=== PATIENT | male | born 1980 | race American Indian/Alaskan Native ===

== ENCOUNTER 2016-12-01 11:32 | Day surgery (SDC) | payer BC ==
[~2016-12-01 11:32] MED LIST: NACL 0.9% 1000 ML 1,000 ML IV SCH; PEPCID PO NR; TRIPLE ANTIBIOTIC TP ONE; VERSED IV NR
[2016-12-01] MEDS ORDERED: ANCEF/STERILE WATER 2 GM/20 ML 2 GM/20 ML SYRINGE IV NR (12:00)
[2016-12-01] MEDS ORDERED: DILAUDID IV PRN (12:27)
[2016-12-01] MEDS ORDERED: ZOFRAN IV PRN (12:27)
--- NOTE | 2016-12-01 12:33 | Anesthesia Consultation ---
Anesthesia Consult and Med Hx Date of service: 12/01/16 - Airway Anesthetic Teeth Evaluation: Good ROM Head & Neck: Adequate Mental/Hyoid Distance: Adequate Mallampati Class: Class II Intubation Access Assessment: Probably Good - Pulmonary Exam CTA: Yes - Cardiac Exam Cardiac Exam: RRR - Pre-Operative Health Status ASA Pre-Surgery Classification: ASA2 Proposed Anesthetic Plan: General - Pulmonary Hx Smoking: Yes (STOPPED X 10YRS , BUT MARIJUANA DAILY) Hx Asthma: Yes (INTUBATED WITH ASTHMA 2002) Hx Sleep Apnea: No (CAMILA PRE SCREEN HIGH RISK) - Cardiovascular System Hx Hypertension: Yes (X 2 MONTHS) - Hematic Hx Anemia: Yes (NOT RECENT) - Other Systems Hx Substance Use: Yes (MARIJUANA DAILY) Hx Cancer: No
--- NOTE | 2016-12-01 12:34 | Anesthesia Day of Surgery ---
Anesthesia Day of Surgery - Day of Surgery Patient Examined: Yes Patient H&P Reviewed: Yes Patient is NPO: Yes
[2016-12-01] MEDS ORDERED: SUBLIMAZE ONE (13:13)
[2016-12-01] MEDS ORDERED: DIPRIVAN 10 MG/ML IV ONE ×2 (13:18→13:42)
[2016-12-01] MEDS ORDERED: XYLOCAINE MPF 2% ONE (13:20)
[2016-12-01] MEDS ORDERED: THERMAZENE 50 GRAM TP ONE ×2 (13:33→13:58)
[2016-12-01] MEDS ORDERED: DECADRON ONE (13:40)
[2016-12-01] MEDS ORDERED: ZOFRAN ONE (13:45)
[2016-12-01] MEDS ORDERED: ROBINUL ONE (13:52)
[2016-12-01] MEDS ORDERED: WATER FOR IRRIG STERILE IR ONE (13:57)
[2016-12-01] MEDS ORDERED: NACL 0.9% 1000 ML 1,000 ML ONE (14:01)
--- NOTE | 2016-12-01 14:15 | Short Stay Summary ---
Short Stay Documentation Date of service: 12/01/16 - History H&P: obtained from office - Allergies and Medications Current Medications: Allergies No Known Allergies Allergy (Verified 10/18/13 00:58) Home Medications Medication Instructions Recorded Confirmed Last Taken Type Hydrochlorothiazide [HCTZ] 25 mg PO QDAY #1 tablet 09/21/15 12/01/16 12/01/16 Rx ALBUTEROL Inhaler [ProAir HFA 2 puff IH QID PRN #1 inhalation 02/28/16 12/01/16 12/01/16 Rx Inhaler] ALBUTEROL NEB's [Proventil 0.083% 2.5 mg IH TID PRN #20 neb 02/28/16 12/01/16 Rx NEBS] Valacyclovir HCl [Valtrex] 1,000 mg PO PRN PRN 11/25/16 11/25/16 Unknown History amLODIPine [Norvasc] 10 mg PO DAILY 11/25/16 12/01/16 12/01/16 History Active Medications Famotidine (Pepcid) 20 mg PO PREOP NR Stop: 12/01/16 15:00 Last Admin: 12/01/16 12:40 Dose: 20 mg Hydromorphone HCl (Dilaudid) 0.5 mg IV Q10MIN PRN PRN Reason: Pain , Severe (7-10) Stop: 12/04/16 12:28 Sodium Chloride (Nacl 0.9% 1000 Ml) 1,000 mls @ 75 mls/hr IV DIRECT XU Last Admin: 12/01/16 12:30 Dose: 75 mls/hr Midazolam HCl (Versed) 2 mg IV PREOP NR Stop: 12/01/16 23:59 Last Admin: 12/01/16 13:10 Dose: 2 mg - Brief post op/procedure progress note Date of procedure: 12/01/16 Pre-op diagnosis: perineal / scrotal condyloma Post-op diagnosis: same Procedure: cysto, co2 laser & excision of condyloma Anesthesia: LILIANA Surgeon: YARY HOANG Estimated blood loss: minimal Pathology: list (condyloma) Specimen disposition: to lab Condition: stable - Hospital course Hospital course: cipro, norco, silvadene cream BID (on chart) - Disposition Condition at discharge: Stable Disposition: DC-01 TO HOME OR SELFCARE Short Stay Discharge Plan Follow up with: PRIMARY CARE, [Primary Care Provider] - 7 Days
[2016-12-01] MEDS ORDERED: PROVENTIL IH ONE (14:26)
--- NOTE | 2016-12-01 14:59 | Post Anesthesia Evaluation ---
- Post Anesthesia Evaluation Patient Participated: Yes Airway Patent: Yes Stable Respiratory Function: Yes Nausea/Vomiting: No Temp > 96.8F: Yes Pain Manageable: Yes Adequeate Hydration: Yes Anesthesia Complications: No Block Receding Appropriately: Not Applicable Patient on Ventilator: No
[2016-12-01] MEDS ORDERED: NORCO 5/325 PO PRN (15:30)
[2016-12-01 18:21] VITALS: BP 125/85
--- NOTE | 2016-12-01 20:29 | Operative Report ---
PREOPERATIVE DIAGNOSIS: Penoscrotal condyloma 1 cm x 3 cm. POSTOPERATIVE DIAGNOSIS: Penoscrotal condyloma 1 cm x 3 cm. PROCEDURE: Cystoscopy, excision and CO2 laser ablation of condyloma. SURGEON: Damaso Tapia MD ANESTHESIA: General. ANESTHESIOLOGIST: Lor Calero MD ESTIMATED BLOOD LOSS: Minimal. FLUIDS: Crystalloid. COMPLICATIONS: No complications. INDICATIONS: This patient is a 36-year-old gentleman seen in the office with moderate size condyloma in the perineal and scrotal area. Discussed options. He agreed to proceed with surgical intervention. Risks, benefits, and complications were explained. DESCRIPTION OF PROCEDURE: The patient was taken to the operative suite, placed in a supine position. After adequate general anesthesia, placed in a dorsal lithotomy position, prepped and draped in usual fashion. Inspection of the penis did not reveal any lesions, scrotal area in the crease of the right scrotum and upper thigh was noted to have 1 cm x 3 cm worth of condyloma about the size of a finger. Cystoscopy was performed. No urethral, prostate or bladder abnormalities. Excision of half the condyloma volume was performed with Davion, CO2 laser, ablation of the rest of the lesion using 6 delong was performed. Adequate removal of the condyloma could be appreciated. A 3-0 Vicryl in interrupted fashion was used to reapproximate the skin. Silvadene cream was placed. Fluffs and mesh briefs were placed. He was extubated and taken to the recovery room. Rectal exam was benign. He will go home on Cipro, [place] and Silvadene cream b.i.d. JOB# [id number] [employer] [facility]/NT[facility]
== END 2016-12-01 17:22 | disposition home or self-care (01) ==
LOC: OR 11:32
PROVIDERS: ATTEND Urology
DX: A63.0 Anogenital (venereal) warts (principal); L83 Acanthosis nigricans; L57.0 Actinic keratosis; K62.89 Other specified diseases of anus and rectum; F12.90 Cannabis use, unspecified, uncomplicated; J45.909 Unspecified asthma, uncomplicated; I10 Essential (primary) hypertension; G47.33 Obstructive sleep apnea (adult) (pediatric); Z79.899 Other long term (current) drug therapy; Z87.440 Personal history of urinary (tract) infections; Z87.891 Personal history of nicotine dependence; Z72.89 Other problems related to lifestyle; Z83.3 Family history of diabetes mellitus
CPT/HCPCS: 36415; 54065; 84132; 88305; A4217; J0690; J1100; J2250; J2405; J2704; J3010; J7030; 88304; A6250

== ENCOUNTER 2018-06-25 21:07 | Emergency (ER) | payer BC ==
[2018-06-25] MEDS ORDERED: PROVENTIL IH ONE (21:17)
[2018-06-25] MEDS ORDERED: SOLU-Medrol IM ONE (21:17)
--- NOTE | 2018-06-25 21:19 | Emergency Department Report ---
Chief Complaint: Dyspnea/Respdistress Stated Complaint: ASTHMA Time Seen by Provider: 06/25/18 21:16 - HPI History of Present Illness: ASTHMA AE NO FEVER NO CHILLS NO CP WHEEZING BILATERALLY RX ALB ATROVENT NEB BP MED CIG/ETOH PMH ASTHMA HTN MSE COMPLETED - Exam Vital Signs: Vital Signs 06/25/18 21:16 Temperature 98.4 F Pulse Rate 90 Respiratory 22 Rate Blood Pressure 156/100 O2 Sat by Pulse 95 Oximetry MSE screening note: Focused history and physical exam performed. Due to findings the following was ordered: ED Disposition for MSE Condition: Stable
--- NOTE | 2018-06-25 22:00 | XRay Report ---
PROCEDURE: Chest. TECHNIQUE: PA and lateral views. HISTORY: Asthma. COMPARISONS: Chest 09/21/2015. FINDINGS: The heart and mediastinum appear normal. The lungs are clear and well expanded. There are no pleural effusions. The soft tissues and regional skeleton are unremarkable. IMPRESSION: Normal study. This document is electronically signed by Wil Castle MD., June 25 2018 09:59:12 PM ET
--- NOTE | 2018-06-25 22:43 | Emergency Department Report ---
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 States that he does not take his medication before going intragenic into the freezer and symptoms and subsequently began to have some issues with with wheezing, coughing and some shortness of breath, doesn't come to the emergency department. No fevers, chills, sweats, no hemoptysis, hematemesis, no hematochezia. He reports no lower extremity swelling, no no abdominal pain or back pain. MD Complaint: "asthma attack" -: Gradual Asthma History: other Severity: mild Context: other Associated Symptoms: none, dry cough. denies: fever, chest pain, leg edema, syncope - Related Data Home Medications Medication Instructions Recorded Confirmed Last Taken Valacyclovir HCl [Valtrex] 1,000 mg PO PRN PRN 11/25/16 11/25/16 Unknown amLODIPine [Norvasc] 10 mg PO DAILY 11/25/16 12/01/16 12/01/16 Previous Rx's Medication Instructions Recorded Last Taken Type hydroCHLOROthiazide [HCTZ] 25 mg PO QDAY #1 tablet 09/21/15 12/01/16 Rx ALBUTEROL Inhaler (OR & NICU) 2 puff IH QID PRN #1 inhalation 02/28/16 12/01/16 Rx [ProAir HFA Inhaler] ALBUTEROL NEB's [Proventil 0.083% 2.5 mg IH TID PRN #20 neb 02/28/16 12/01/16 Rx NEBS] Montelukast [Singulair] 10 mg PO QPM #10 tablet 06/25/18 Unknown Rx predniSONE [Deltasone] 50 mg PO QDAY #5 tab 06/25/18 Unknown Rx Allergies Allergy/AdvReac Type Severity Reaction Status Date / Time No Known Allergies Allergy Verified 10/18/13 00:58 ED Review of Systems ROS: Stated complaint: ASTHMA Other details as noted in HPI Constitutional: denies: chills, fever Eyes: denies: eye pain, eye discharge, vision change ENT: denies: ear pain, throat pain Respiratory: wheezing. denies: cough, shortness of breath Cardiovascular: denies: chest pain, palpitations Endocrine: no symptoms reported Gastrointestinal: denies: abdominal pain, nausea, diarrhea Genitourinary: denies: urgency, dysuria Musculoskeletal: denies: back pain, joint swelling, arthralgia Skin: denies: rash, lesions Neurological: denies: headache, weakness, paresthesias Psychiatric: denies: anxiety, depression Hematological/Lymphatic: denies: easy bleeding, easy bruising ED Past Medical Hx - Past Medical History Hx Hypertension: Yes (X 2 MONTHS) Hx Asthma: Yes (INTUBATED WITH ASTHMA 2002) Additional medical history: intubated in 1994 - Surgical History Additional Surgical History: Anjum in thigh/right ankle - Social History Smoking Status: Never Smoker Substance Use Type: Alcohol, Marijuana - Medications Home Medications: Home Medications Medication Instructions Recorded Confirmed Last Taken Type hydroCHLOROthiazide [HCTZ] 25 mg PO QDAY #1 tablet 09/21/15 12/01/16 12/01/16 Rx ALBUTEROL Inhaler (OR & NICU) 2 puff IH QID PRN #1 inhalation 02/28/16 12/01/16 12/01/16 Rx [ProAir HFA Inhaler] ALBUTEROL NEB's [Proventil 0.083% 2.5 mg IH TID PRN #20 neb 02/28/16 12/01/16 12/01/16 Rx NEBS] Valacyclovir HCl [Valtrex] 1,000 mg PO PRN PRN 11/25/16 11/25/16 Unknown History amLODIPine [Norvasc] 10 mg PO DAILY 11/25/16 12/01/16 12/01/16 History Montelukast [Singulair] 10 mg PO QPM #10 tablet 06/25/18 Unknown Rx predniSONE [Deltasone] 50 mg PO QDAY #5 tab 06/25/18 Unknown Rx ED Physical Exam - General Limitations: No Limitations General appearance: alert, in no apparent distress - Head Head exam: Present: atraumatic, normocephalic - Eye Eye exam: Present: normal appearance, PERRL, EOMI, scleral icterus Pupils: Present: normal accommodation - ENT ENT exam: Present: normal exam, normal orophraynx, mucous membranes moist - Neck Neck exam: Present: normal inspection, full ROM - Respiratory Respiratory exam: Present: normal lung sounds bilaterally, wheezes, chest wall tenderness, decreased breath sounds. Absent: respiratory distress, rales, rhonchi, stridor, accessory muscle use - Cardiovascular Cardiovascular Exam: Present: regular rate, normal rhythm, normal heart sounds. Absent: bradycardia, tachycardia, systolic murmur, diastolic murmur, rubs, ga llop - GI/Abdominal GI/Abdominal exam: Present: soft, normal bowel sounds. Absent: tenderness, guarding, hyperactive bowel sounds, hypoactive bowel sounds, organomegaly, bruit, pulsatile mass - Rectal Rectal exam: Present: deferred - Extremities Exam Extremities exam: Present: normal inspection, full ROM, normal capillary refill. Absent: tenderness, pedal edema, calf tenderness - Back Exam Back exam: Present: normal inspection, full ROM. Absent: CVA tenderness (R), CVA tenderness (L), muscle spasm, paraspinal tenderness - Neurological Exam Neurological exam: Present: alert, oriented X3, CN II-XII intact, normal gait - Psychiatric Psychiatric exam: Present: normal affect, normal mood. Absent: anxious - Skin Skin exam: Present: warm, dry, intact, normal color. Absent: rash, diaphoretic, urticaria, petechiae, pallor, abrasion ED Course Vital Signs 06/25/18 21:16 Temperature 98.4 F Pulse Rate 90 Respiratory 22 Rate Blood Pressure 156/100 O2 Sat by Pulse 95 Oximetry ED Medical Decision Making - Radiology Data Radiology results: report reviewed (no acute processes) - Medical Decision Making Been much better since breathing treatment no acute distress, ambulating well. No decrease saturation talking in full sentences. No cysts. Remote muscle use. Discuss with him utilization of peak flows and Singulair which we'll add to his medication regimen and follow with his primary care provider for definitive medication adjustments. Critical care attestation.: If time is entered above; I have spent that time in minutes in the direct care of this critically ill patient, excluding procedure time. ED Disposition Clinical Impression: Asthma exacerbation Disposition: -01 TO HOME OR SELFCARE Is pt being admited?: No Does the pt Need Aspirin: No Condition: Stable Instructions: Asthma (ED) Referrals: ROGELIO WEST MD [Primary Care Provider] - 3-5 Days
[2018-06-25 23:12] VITALS: BP 139/91
== END 2018-06-25 23:11 | disposition home or self-care (01) ==
LOC: ED 21:07
DX: J45.901 Unspecified asthma with (acute) exacerbation (principal); I10 Essential (primary) hypertension
CPT/HCPCS: 71046; 94640; 96372; 99283; J2930

== ENCOUNTER 2018-09-02 19:39 | Emergency (ER) | payer BC ==
[2018-09-02] MEDS ORDERED: DUONEB *Not for PRN Use IH ONE (20:21)
--- NOTE | 2018-09-02 21:31 | Emergency Department Report ---
Blank Doc - Documentation Documentation: 38 y o male presents to Ed cc of asthma attack BREathing tx ordered and administered in triage, Cxr ACC eval
--- NOTE | 2018-09-02 21:56 | XRay Report ---
PROCEDURE: Chest. TECHNIQUE: PA and lateral chest radiographs were obtained. HISTORY: Shortness of breath. COMPARISONS: Chest 06/25/2018. FINDINGS: The heart and mediastinum appear normal. The lungs are clear and well expanded. There are no pleural effusions. The soft tissues and regional skeleton are unremarkable. IMPRESSION: Normal study. This document is electronically signed by Wil Castle MD., September 02 2018 10:54:19 PM ET
--- NOTE | 2018-09-02 23:08 | Emergency Department Report ---
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 the patient had associated SOB and wheezing. he has a dry cough. he denies any fever. pt states that he takes albuterol inhaler, albuterol nebulizer, advair and singulair. he states he is out of all of his medications. he is requesting a refill at this time. pt also has a hx of HTN and has not taken his medication in a couple of weeks due to being out of his meds. pt is also requesting refill of his HTN meds. - Related Data Home Medications Medication Instructions Recorded Confirmed Last Taken Valacyclovir HCl [Valtrex] 1,000 mg PO PRN PRN 11/25/16 11/25/16 Unknown Previous Rx's Medication Instructions Recorded Last Taken Type predniSONE [Deltasone] 50 mg PO QDAY #5 tab 06/25/18 Unknown Rx ALBUTEROL Inhaler (OR & NICU) 2 puff IH QID PRN #1 inhalation 09/02/18 Unknown Rx [ProAir HFA Inhaler] ALBUTEROL NEB's [Proventil 0.083% 2.5 mg IH TID PRN #20 neb 09/02/18 Unknown Rx NEBS] Fluticasone [Flonase] 1 spray NS QDAY #1 bottle 09/02/18 Unknown Rx Montelukast [Singulair] 10 mg PO QPM #30 tablet 09/02/18 Unknown Rx Prednisone [predniSONE 10 mg 10 mg PO .TAPER #1 tab.ds.pk 09/02/18 Unknown Rx (6-Day Pack, 21 Tabs)] amLODIPine [Norvasc] 10 mg PO DAILY #14 tablet 09/02/18 Unknown Rx hydroCHLOROthiazide [HCTZ] 25 mg PO QDAY #14 tablet 09/02/18 Unknown Rx Allergies Allergy/AdvReac Type Severity Reaction Status Date / Time No Known Allergies Allergy Verified 09/02/18 19:42 ED Review of Systems ROS: Stated complaint: ASTHMA Other details as noted in HPI Comment: All other systems reviewed and negative ED Past Medical Hx - Past Medical History Previous Medical History?: Yes Hx Hypertension: Yes (X 2 MONTHS) Hx Asthma: Yes (INTUBATED WITH ASTHMA 2002) Additional medical history: intubated in 1994 - Surgical History Past Surgical History?: Yes Additional Surgical History: Anjum in thigh/right ankle - Social History Smoking Status: Never Smoker Substance Use Type: Alcohol, Marijuana - Medications Home Medications: Home Medications Medication Instructions Recorded Confirmed Last Taken Type Valacyclovir HCl [Valtrex] 1,000 mg PO PRN PRN 11/25/16 11/25/16 Unknown History predniSONE [Deltasone] 50 mg PO QDAY #5 tab 06/25/18 Unknown Rx ALBUTEROL Inhaler (OR & NICU) 2 puff IH QID PRN #1 inhalation 09/02/18 Unknown Rx [ProAir HFA Inhaler] ALBUTEROL NEB's [Proventil 0.083% 2.5 mg IH TID PRN #20 neb 09/02/18 Unknown Rx NEBS] Fluticasone [Flonase] 1 spray NS QDAY #1 bottle 09/02/18 Unknown Rx Montelukast [Singulair] 10 mg PO QPM #30 tablet 09/02/18 Unknown Rx Prednisone [predniSONE 10 mg 10 mg PO .TAPER #1 tab.ds.pk 09/02/18 Unknown Rx (6-Day Pack, 21 Tabs)] amLODIPine [Norvasc] 10 mg PO DAILY #14 tablet 09/02/18 Unknown Rx hydroCHLOROthiazide [HCTZ] 25 mg PO QDAY #14 tablet 09/02/18 Unknown Rx ED Physical Exam - General Limitations: No Limitations General appearance: alert, in no apparent distress - Head Head exam: Present: atraumatic, normocephalic - Eye Eye exam: Present: normal appearance - ENT ENT exam: Present: other (pale, boggy turbinates bilaterally ) - Respiratory Respiratory exam: Present: normal lung sounds bilaterally. Absent: respiratory distress, wheezes, rales, rhonchi, stridor, chest wall tenderness, accessory muscle use, decreased breath sounds, prolonged expiratory - Cardiovascular Cardiovascular Exam: Present: regular rate, normal rhythm, normal heart sounds. Absent: systolic murmur, diastolic murmur, rubs, gallop - Neurological Exam Neurological exam: Present: alert, oriented X3 - Psychiatric Psychiatric exam: Present: normal affect, normal mood - Skin Skin exam: Present: warm, dry, intact ED Course Vital Signs 09/02/18 09/02/18 09/02/18 19:45 20:19 23:28 Temperature 99.3 F 99.3 F 98.9 F Pulse Rate 95 H 94 H 88 Respiratory 18 16 20 Rate Blood Pressure 170/108 Blood Pressure 170/108 173/114 [Left] O2 Sat by Pulse 97 96 99 Oximetry ED Medical Decision Making - Lab Data Vital Signs 09/02/18 09/02/18 19:45 20:19 Temperature 99.3 F 99.3 F Pulse Rate 95 H 94 H Respiratory 18 16 Rate Blood Pressure 170/108 Blood Pressure 170/108 [Left] O2 Sat by Pulse 97 96 Oximetry - Radiology Data Radiology results: report reviewed PROCEDURE: Chest. TECHNIQUE: PA and lateral chest radiographs were obtained. HISTORY: Shortness of breath. COMPARISONS: Chest 06/25/2018. FINDINGS: The heart and mediastinum appear normal. The lungs are clear and well expanded. There are no pleural effusions. The soft tissues and regional skeleton are unremarkable. IMPRESSION: Normal study. 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 the patient had associated SOB and wheezing. he has a dry cough. he denies any fever. pt states that he takes albuterol inhaler, albuterol nebulizer, advair and singulair. he states he is out of all of his medications. he is requesting a refill at this time. pt also has a hx of HTN and has not taken his medication in a couple of weeks due to being out of his meds. pt is a lso requesting refill of his HTN meds. pt given nebulizer tx by triage, on examination he has no wheezing and good air movement. CXR with no acute process. pt has pale, boggy turbinates. pt does not know the dose of his advair and has never been prescribed by the ED before, advised pt he can have it refilled by his PCP. pt given refill of albuterol inhaler, albuterol neb solution, and singulair. also, pt given flonase for allergic rhinitis. pt BP is elevated but not symptomatic, pt asked for refill of BP meds, discussed would give two weeks worth but all future refills would need to be through his primary care doctor. discussed to follow up with PCP in the next 2-3 days to discuss asthma and blood pressure. return to the emergency room for any new or worsening symptoms. - Differential Diagnosis asthma, URI, viral syndrome, PNA, seasonal allergies, allergic rhinitis Critical care attestation.: If time is entered above; I have spent that time in minutes in the direct care of this critically ill patient, excluding procedure time. ED Disposition Clinical Impression: Seasonal allergies, Elevated blood pressure reading Asthma exacerbation Qualifiers: Asthma severity: unspecified severity Asthma persistence: unspecified Qualified Code(s): J45.901 - Unspecified asthma with (acute) exacerbation Allergic rhinitis Qualifiers: Allergic rhinitis trigger: unspecified Allergic rhinitis seasonality: seasonal Qualified Code(s): J30.2 - Other seasonal allergic rhinitis Disposition: DC-01 TO HOME OR SELFCARE Is pt being admited?: No Does the pt Need Aspirin: No Condition: Stable Instructions: Asthma (ED), Allergic Rhinitis (ED), Chronic Hypertension (ED) Additional Instructions: Please use all medication as prescribed. please follow up with your primary care doctor in the next 2-3 days and discuss your asthma and high blood pressure. will refill two weeks worth of your high blood pressure medication but will need to have future refills through your primary care doctor. return to the emergency room for any new or worsening symptoms. Prescriptions: Fluticasone [Flonase] 1 spray NS QDAY #1 bottle hydroCHLOROthiazide [HCTZ] 25 mg PO QDAY #14 tablet amLODIPine [Norvasc] 10 mg PO DAILY #14 tablet Prednisone [predniSONE 10 mg (6-Day Pack, 21 Tabs)] 10 mg PO .TAPER #1 tab.ds.pk ALBUTEROL Inhaler (OR & NICU) [ProAir HFA Inhaler] 2 puff IH QID PRN #1 inhalation PRN Reason: Shortness Of Breath ALBUTEROL NEB's [Proventil 0.083% NEBS] 2.5 mg IH TID PRN #20 neb PRN Reason: Wheezing Montelukast [Singulair] 10 mg PO QPM #30 tablet Referrals: ROGELIO WEST MD [Primary Care Provider] - 2-3 Days your, primary care doctor [Other] - 2-3 Days Time of Disposition: 23:10 Print Language: [place]
[2018-09-02 23:29] VITALS: BP 173/114
== END 2018-09-02 23:30 | disposition home or self-care (01) ==
LOC: ED 19:39
DX: J45.901 Unspecified asthma with (acute) exacerbation (principal); J30.2 Other seasonal allergic rhinitis; I10 Essential (primary) hypertension; J45.909 Unspecified asthma, uncomplicated; F12.10 Cannabis abuse, uncomplicated
CPT/HCPCS: 71046

== ENCOUNTER 2020-08-05 11:00 | Emergency (ER) | payer BC ==
--- NOTE | 2020-08-05 11:57 | Emergency Department Report ---
ED General Adult HPI - General Chief complaint: Adult Asthma Stated complaint: ASTHMA PUI?: No Time Seen by Provider: 08/05/20 11:56 Source: patient, RN notes reviewed, old records reviewed Mode of arrival: Ambulatory Limitations: No Limitations - History of Present Illness Initial comments: The patient was evaluated in the emergency department for symptoms described in the history of present illness. He/she was evaluated in the context of the global COVID-19 pandemic, which necessitated consideration that the patient might be at risk for infection with the virus that causes COVID-19. Institutional protocols and algorithms that pertain to the evaluation of patients at risk for COVID-19 are in a state of rapid change based on information released by regulatory bodies including the CDC and federal and state organizations. These policies and algorithms were followed during the patient's care in the emergency department. Please note that these policies, procedures and recommendations changed on a rapid basis. The patient is a 40-year-old gentleman. He is not known to myself previously. He has a history of body mass index of 41.8, marijuana consumption, and asthma. His maintenance medication is trilogy. He also takes as needed albuterol. He presents to the ER today with a complaint of cough, wheezing and shortness of breath without physical pain. He denies Covid exposure, loss of taste and smell, diarrhea, and physical pain. He denies posterior leg pain, leg swelling, immobilization, surgical intervention, and hospitalization. He did incidentally have a recent trip to [place], but reports frequent stops, and indicates he was not sitting down for any more than 3 hours at the time. His cough and wheezing and shortness of breath have started over the past 48 hours. He reports smoking a new type of marijuana cigarette, and thinks that this was the inciting factor. Cough, wheezing and shortness of breath are intermittent, worsened with physical exertion and decreased with rest. -: Gradual, days(s) Consistency: other Improves with: other Worsens with: other - Related Data Home Medications Medication Instructions Recorded Confirmed Last Taken Valacyclovir HCl [Valtrex] 1,000 mg PO PRN PRN 11/25/16 11/25/16 Unknown Previous Rx's Medication Instructions Recorded Last Taken Type predniSONE [Deltasone] 50 mg PO QDAY #5 tab 06/25/18 Unknown Rx ALBUTEROL NEB's [Proventil 0.083% 2.5 mg IH TID PRN #20 neb 09/02/18 Unknown Rx NEBS] Albuterol Mdi (or & Nicu Only) 2 puff IH QID PRN #1 inhalation 09/02/18 Unknown Rx [ProAir HFA Inhaler] Fluticasone [Flonase] 1 spray NS QDAY #1 bottle 09/02/18 Unknown Rx Montelukast [Singulair] 10 mg PO QPM #30 tablet 09/02/18 Unknown Rx Prednisone [predniSONE 10 mg 10 mg PO .TAPER #1 tab.ds.pk 09/02/18 Unknown Rx (6-Day Pack, 21 Tabs)] amLODIPine 10 mg PO DAILY #14 tablet 09/02/18 Unknown Rx hydroCHLOROthiazide [HCTZ] 25 mg PO QDAY #14 tablet 09/02/18 Unknown Rx Albuterol Sulfate [Albuterol 0.63% 0.63 mg IH Q4HR PRN #2 ml 08/05/20 Unknown Rx NEBS] Albuterol Sulfate [Proair 90 mcg IH Q4HR PRN #2 aer.pow.ba 08/05/20 Unknown Rx Respiclick] Benzonatate [Tessalon Perles] 100 mg PO Q8HR PRN #30 capsule 08/05/20 Unknown Rx Ipratropium (Nf) [Atrovent] 2 puff IH Q6HR PRN #1 inha 08/05/20 Unknown Rx Ipratropium [Atrovent NEB] 0.5 mg IH Q4HR #2 ml 08/05/20 Unknown Rx predniSONE [Deltasone] 40 mg PO QDAY #8 tab 08/05/20 Unknown Rx Allergies Allergy/AdvReac Type Severity Reaction Status Date / Time No Known Allergies Allergy Verified 08/05/20 11:08 ED Review of Systems ROS: Stated complaint: ASTHMA Other details as noted in HPI Constitutional: other (Denies loss of taste and smell). denies: fever, weakness Eyes: denies: eye discharge ENT: congestion Respiratory: cough, shortness of breath, SOB with exertion, SOB at rest, wheezing Cardiovascular: denies: chest pain Gastrointestinal: denies: vomiting, diarrhea, hematemesis, melena Musculoskeletal: denies: back pain Neurological: denies: headache Hematological/Lymphatic: denies: easy bleeding ED Past Medical Hx - Past Medical History Hx Hypertension: Yes (X 2 MONTHS) Hx Asthma: Yes (INTUBATED WITH ASTHMA 2002) Additional medical history: intubated in 1994 - Surgical History Additional Surgical History: Anjum in thigh/right ankle - Social History Smoking Status: Never Smoker Substance Use Type: Marijuana - Medications Home Medications: Home Medications Medication Instructions Recorded Confirmed Last Taken Type Valacyclovir HCl [Valtrex] 1,000 mg PO PRN PRN 11/25/16 11/25/16 Unknown History predniSONE [Deltasone] 50 mg PO QDAY #5 tab 06/25/18 Unknown Rx ALBUTEROL NEB's [Proventil 0.083% 2.5 mg IH TID PRN #20 neb 09/02/18 Unknown Rx NEBS] Albuterol Mdi (or & Nicu Only) 2 puff IH QID PRN #1 inhalation 09/02/18 Unknown Rx [ProAir HFA Inhaler] Fluticasone [Flonase] 1 spray NS QDAY #1 bottle 09/02/18 Unknown Rx Montelukast [Singulair] 10 mg PO QPM #30 tablet 09/02/18 Unknown Rx Prednisone [predniSONE 10 mg 10 mg PO .TAPER #1 tab.ds.pk 09/02/18 Unknown Rx (6-Day Pack, 21 Tabs)] amLODIPine 10 mg PO DAILY #14 tablet 09/02/18 Unknown Rx hydroCHLOROthiazide [HCTZ] 25 mg PO QDAY #14 tablet 09/02/18 Unknown Rx Albuterol Sulfate [Albuterol 0.63% 0.63 mg IH Q4HR PRN #2 ml 08/05/20 Unknown Rx NEBS] Albuterol Sulfate [Proair 90 mcg IH Q4HR PRN #2 aer.pow.ba 08/05/20 Unknown Rx Respiclick] Benzonatate [Tessalon Perles] 100 mg PO Q8HR PRN #30 capsule 08/05/20 Unknown Rx Ipratropium (Nf) [Atrovent] 2 puff IH Q6HR PRN #1 inha 08/05/20 Unknown Rx Ipratropium [Atrovent NEB] 0.5 mg IH Q4HR #2 ml 08/05/20 Unknown Rx predniSONE [Deltasone] 40 mg PO QDAY #8 tab 08/05/20 Unknown Rx ED Physical Exam - General Limitations: No Limitations General appearance: alert, anxious, obese - Head Head exam: Present: atraumatic, normocephalic - Eye Eye exam: Present: normal appearance, EOMI. Absent: nystagmus - ENT ENT exam: Present: normal exam, normal orophraynx, mucous membranes moist, normal external ear exam - Neck Neck exam: Present: normal inspection, full ROM. Absent: tenderness, meningismus - Respiratory Respiratory exam: Present: respiratory distress, wheezes, rhonchi - Cardiovascular Cardiovascular Exam: Present: regular rate, normal rhythm, normal heart sounds. Absent: bradycardia, tachycardia, irregular rhythm, systolic murmur, diastolic murmur, rubs, gallop - GI/Abdominal GI/Abdominal exam: Present: soft. Absent: distended, tenderness, guarding, rebound, rigid, pulsatile mass - Rectal Rectal exam: Present: deferred - Extremities Exam Extremities exam: Present: normal inspection, full ROM, other (2+ pulses noted in the bilateral upper and lower extremities. There is no palpable cord. negative Homans sign. Muscular compartments are soft. The pelvis is stable.). Absent: pedal edema, calf tenderness - Back Exam Back exam: Present: normal inspection, full ROM. Absent: tenderness, CVA tenderness (R), CVA tenderness (L), paraspinal tenderness, vertebral tenderness - Neurological Exam Neurological exam: Present: alert, oriented X3, normal gait, other (No facial droop. Tongue midline. Extraocular movements intact bilaterally. Facial sensation intact to light touch in V1, V2, V3 distribution bilaterally. 5 and a 5 strength in 4 extremities. Sensation intact to light touch in 4 extremities.). Absent: motor sensory deficit - Psychiatric Psychiatric exam: Present: anxious - Skin Skin exam: Present: warm, dry, intact, normal color. Absent: rash ED Course Vital Signs 08/05/20 08/05/20 08/05/20 11:08 12:03 12:48 Temperature 98.8 F Pulse Rate 98 H 88 Pulse Rate [ 111 H Anterior Bilateral Throughout] Respiratory 24 18 Rate Respiratory 22 Rate [Anterior Bilateral Throughout] Blood Pressure 139/101 Blood Pressure 137/92 [Right] O2 Sat by Pulse 95 95 Oximetry O2 Sat by Pulse Oximetry [ Digit-Finger] 08/05/20 12:50 Temperature Pulse Rate Pulse Rate [ Anterior Bilateral Throughout] Respiratory Rate Respiratory Rate [Anterior Bilateral Throughout] Blood Pressure Blood Pressure [Right] O2 Sat by Pulse Oximetry O2 Sat by Pulse 95 Oximetry [ Digit-Finger] - Reevaluation(s) Reevaluation #1: 08/05/20 12:46 Differential diagnosis, including but not limited to: Bronchitis, pneumonitis, reactive airways disease, marijuana use Assessment and plan: 40-year-old gentleman, PERC negative, who denies DVT and pulmonary embolism risk factors, but I find low risk by Wells criteria for pulmonary embolism, with a history of asthma/reactive airways disease, marijuana use, presenting with cough, wheezing, mucus production and shortness of breath, after consuming new type of marijuana cigarette this weekend. Place patient on monitor, start albuterol, Atrovent, steroids and magnesium. Have counseled patient to discontinue cannabis consumption. Have also ordered chest x-ray. Patient to the best of his knowledge does not have a history of obstructive slee p apnea. However, he has a body mass index of 41, he may benefit from outpatient sleep study evaluation, we will instruct patient to follow-up with outpatient primary care/pulmonology. 08/05/20 12:47 Reevaluation #2: 08/05/20 15:31 Reassessed. Patient in no acute distress. X-ray the chest within normal limits. Tachycardia likely secondary to albuterol. Work of breathing improved. - Pulse Oximetry Interpretation Digit-Finger Initial Pulse Oximetry Readin O2 Sat by Pulse Oximetry: 95 Actions Taken: none ED Medical Decision Making - Lab Data Vital Signs 08/05/20 08/05/20 11:08 12:03 Temperature 98.8 F Pulse Rate 98 H 88 Respiratory 24 18 Rate Blood Pressure 139/101 Blood Pressure 137/92 [Right] O2 Sat by Pulse 95 95 Oximetry - Radiology Data Radiology results: report reviewed, image reviewed [facility] [address] [place] [address] X Ray Report Signed Patient: MONA CARO MR#: [id number] : 1980 Acct:[id number] Age/Sex: 40 / M ADM Date: 08/05/20 Loc: ED Attending Dr: Ordering Physician: BIANCA SALGADO MD Date of Service: 08/05/20 Procedure(s): XR chest 1V ap Accession Number(s): [id number] cc: BIANCA SALGADO MD Fluoro Time In Minutes: CHEST 1 VIEW 08/05/2020 1:37 PM INDICATION / CLINICAL INFORMATION: cough wheezing. COMPARISON: 09/02/2018 FINDINGS: SUPPORT DEVICES: None. HEART / MEDIASTINUM: No significant abnormality. LUNGS / PLEURA: No significant pulmonary or pleural abnormality. No pneumothorax. ADDITIONAL FINDINGS: No significant additional findings. IMPRESSION: 1. No acute findings or significant interval change when compared to 09/02/2018. Signer Name: Deana Alcantara MD Signed: 08/05/2020 2:50 PM Workstation Name: [id number] Transcribed By: Dictated By: DEANA ALCANTARA III Electronically Authenticated By: DEANA ALCANTARA III Signed Date/Time: 08/05/20 1450 DD/ 1449 Critical Care Time: Yes Critical care time in (mins) excluding proc time.: 35 Critical care attestation.: If time is entered above; I have spent that time in minutes in the direct care of this critically ill patient, excluding procedure time. ED Disposition Clinical Impression: Body mass index (BMI) greater than 40, Marijuana use Reactive airway disease Qualifiers: Asthma severity: moderate Asthma complication type: with acute exacerbation Disposition: DC-01 TO HOME OR SELFCARE Is pt being admited?: No Does the pt Need Aspirin: No Condition: Good Instructions: Asthma, Adult, Cannabis Use Disorder Additional Instructions: We recommend that the patient discontinue consumption of marijuana, tobacco and smoke products. We also recommend that the patient avoid exposure from secondhand smoke to the aforementioned products. Recommend that patient take the cough medication, breathing medication and steroids as needed and directed. We also recommend that the patient exercise as tolerated, and attempt to lose weight; body mass index of 41.8 considered to be obese. Patient may also have a component of obstructive sleep apnea, which over time, is a risk factor for heart disease, stroke, disability, and loss of quality of life. Please follow-up with your primary care doctor or hospital intern within the next 4 to 6 weeks for evaluation for potential sleep apnea as an outpatient. Please return to the emergency room right away with new pain, worsened pain, migration of pain, projectile vomiting, change in mental status, confusion, inability to tolerate liquid feeds, new, worsened or different symptoms not present on the initial emergency room evaluation. Dr. Dunne is your primary care doctor. Dr. Corona is a local hospital intern/sleep specialist. Prescriptions: Albuterol Sulfate [Albuterol 0.63% NEBS] 0.63 mg IH Q4HR PRN #2 ml PRN Reason: Wheezing Ipratropium (Nf) [Atrovent] 2 puff IH Q6HR PRN #1 inha PRN Reason: Wheezing Ipratropium [Atrovent NEB] 0.5 mg IH Q4HR #2 ml predniSONE [Deltasone] 40 mg PO QDAY #8 tab Albuterol Sulfate [Proair Respiclick] 90 mcg IH Q4HR PRN #2 aer.pow.ba PRN Reason: Wheezing Benzonatate [Tessalon Perles] 100 mg PO Q8HR PRN #30 capsule PRN Reason: Cough Referrals: JAMARI DUNNE MD [Referring] - 3-5 Days YOSHI CORONA MD [Staff Physician] - 3-5 Days Forms: Work/School Release Form(ED)
[2020-08-05] MEDS ORDERED: MAGNESIUM SULFATE 2 GM/50 ML BAG IV ONE (12:05)
[2020-08-05] MEDS ORDERED: ALBUTEROL 2.5 MG/3 ML NEBU IH ONE (12:05)
[2020-08-05] MEDS ORDERED: methylPREDNISolone Sod Succinate 125 MG/2 ML INJ IV ONE (12:05)
[2020-08-05] MEDS ORDERED: IPRATROPIUM 0.02% NEBU 2.5 ML IH ONE (12:05)
--- NOTE | 2020-08-05 14:54 | XRay Report ---
CHEST 1 VIEW 08/05/2020 1:37 PM INDICATION / CLINICAL INFORMATION: cough wheezing. COMPARISON: 09/02/2018 FINDINGS: SUPPORT DEVICES: None. HEART / MEDIASTINUM: No significant abnormality. LUNGS / PLEURA: No significant pulmonary or pleural abnormality. No pneumothorax. ADDITIONAL FINDINGS: No significant additional findings. IMPRESSION: 1. No acute findings or significant interval change when compared to 09/02/2018. Signer Name: Chu Alcantara MD Signed: 08/05/2020 2:50 PM Workstation Name: [id number]
[2020-08-05 15:53] VITALS: BP 157/82
== END 2020-08-05 15:53 | disposition home or self-care (01) ==
LOC: ED 11:00
DX: J45.998 Other asthma (principal); F12.10 Cannabis abuse, uncomplicated; Z68.41 Body mass index [BMI] 40.0-44.9, adult; I10 Essential (primary) hypertension; Z79.899 Other long term (current) drug therapy; Z98.890 Other specified postprocedural states
CPT/HCPCS: 71045; 94640; 94644; 96365; 96375; 99283